=== PATIENT | female | born 1985 | race Two or more races ===

== ENCOUNTER 2022-11-18 00:03 | Inpatient (IN) | payer OTHER ==
[~2022-11-18] VITALS: Ht 165.1 cm; Wt 102.1 kg
[2022-11-21] MEDS ORDERED: NIFEDIPINE ER30 M1 (16:06)
[2022-11-21] MEDS ORDERED: SYNTHROID50 MCG (16:06)
== END 2022-11-22 18:01 | disposition home or self-care (01) | DRG 786 ==
LOC: OB/GYN 00:03 → LDR 00:03 → EDBD 00:03 → OB/GYN 02:29
PROVIDERS: ADMIT Obstetrics & Gynecology; ATTEND Obstetrics & Gynecology
PROC: 0UCC7ZZ Extirpation of Matter from Cervix, Via Natural or Artificial Opening (ICD-10-PCS; 2022-11-18)
PROC: 4A1HXCZ Monitoring of Products of Conception, Cardiac Rate, External Approach (ICD-10-PCS; 2022-11-18)
PROC: 10D00Z1 Extraction of Products of Conception, Low, Open Approach (ICD-10-PCS; principal; 2022-11-18 00:45)
DX: O32.9XX0 Maternal care for malpresentation of fetus, unspecified, not applicable or unspecified (principal); O34.33 Maternal care for cervical incompetence, third trimester; O60.14X0 Preterm labor third trimester with preterm delivery third trimester, not applicable or unspecified; Z20.822 Contact with and (suspected) exposure to COVID-19; O14.14 Severe pre-eclampsia complicating childbirth; Z3A.34 34 weeks gestation of pregnancy; Z37.0 Single live birth